=== PATIENT | male | born 1955 ===

== ENCOUNTER 2017-11-19 08:10 | Emergency (ER) | payer MEDICAID ==
[~2017-11-19] VITALS: Ht 167.6 cm; Wt 68.0 kg
[~2017-11-19 08:10] MED LIST: Augmentin 875-1 EACH PO; Cleocin HCl150 MG PO; Diclofenac Sodi50 MG PO; Naprosyn500 MG PO; OXYACE5T PO; Omeprazole20 M1; PANT40 PO; Pepcid20 MG PO; Pepcid40 MG PO; Percocet 5-3251 EACH PO; Prednisone20 MG PO; Prilosec20 MG PO; TRAM50 PO; Tamiflu75 MG PO; Ultram50 MG PO; Veetids 500500 MG PO; Vistaril50 MG PO; ZOLP5 PO
[2017-11-19 09:45] LABS: BASOPHILS ABSOLUTE AUTO 0.08 K/mm3 (0.00-0.23); BASOPHILS PERCENT AUTO 1 % (0-2); EOSINOPHILS ABSOLUTE AUTO 0.33 K/mm3 (0.00-0.68); EOSINOPHILS PERCENT AUTO 4 % (0-6); Hematocrit 43.9 % (37.0-53.0); Hemoglobin 14.2 g/dL (13.5-17.5); IMMATURE GRAN ABSOLUTE AUTO 0.02 K/mm3 (0.00-0.10); IMMATURE GRAN PERCENT AUTO 0 % (0-1); LYMPHOCYTES ABSOLUTE AUTO 1.78 K/mm3 (0.84-5.20); LYMPHOCYTES PERCENT AUTO 20 % (21-46); MONOCYTES ABSOLUTE AUTO 0.65 K/mm3 (0.16-1.47); MONOCYTES PERCENT AUTO 7 % (4-13); Mean Corpuscular HGB 28.7 pg (26.0-34.0); Mean Corpuscular HGB Conc 32.3 g/dL (31.5-36.5); Mean Corpuscular Volume 89 fL (80-100); Mean Platelet Volume 10.7 fL (9.1-12.4); NEUTROPHILS ABSOLUTE AUTO 5.93 K/mm3 (1.96-9.15); NEUTROPHILS PERCENT AUTO 67 % (41-73); Platelet Count 262 K/mm3 (150-400); RDW Coefficient Variation 13.8 % (11.7-14.2); RDW Standard Deviation 44.7 fL (35.1-46.3); Red Blood Cell Count 4.95 M/mm3 (4.30-5.90); White Blood Cell Count 8.79 K/mm3 (4.00-11.30)
[2017-11-19 10:06] LABS: Alanine Aminotransfer (ALT/SGP 39 U/L (12-78); Albumin, Blood 3.1 g/dL (3.4-5.0); Albumin/Globulin Ratio 0.8 (0.8-1.8); Alk Phos 76 U/L (50-136); Anion Gap 4 mmol/L (6-16); Aspartate Aminotrans (AST/SGOT 24 U/L (12-37); Bilirubin, Total 0.5 mg/dL (0.1-1.0); Blood Urea Nitrogen 8 mg/dL (8-24); Bun/Creatinine Ratio 12.1 (12.0-20.0); CO2, Blood 26 mmol/L (21-32); Calcium, Blood 8.8 mg/dL (8.5-10.1); Chloride, Blood 113 mmol/L (98-108); Creatinine, Blood 0.66 mg/dL (0.60-1.20); Globulin, Blood 3.7 g/dL (2.2-4.0); Glomerular Filtration Rate >60 (60-); Glucose, Blood 98 mg/dL (70-99); Sodium, Blood 143 mmol/L (136-145); Total Protein, Blood 6.8 g/dL (6.4-8.2)
[2017-11-19 11:10] LABS: Source, Urine Clean Catch
[2017-11-19] MEDS ORDERED: Norco 5-325 Ta1 EACH PO (11:11)
[2017-11-19 11:13] LABS: Bilirubin, Urine Neg (Neg); Blood, Urine Neg (Neg); Glucose Qualitative, Urine Neg (Neg); Ketones, Urine Neg (Neg); Leukocyte Esterase, Urine Neg (Neg); Nitrite, Urine Neg (Neg); Protein, Urine Neg (Neg); Urobilinogen, Urine NORM (Normal)
[2017-11-19 11:42] LABS: Appearance, Urine Clear (Clear); Color, Urine Yellow (P-Yellow)
== END 2017-11-19 11:33 | disposition home or self-care (01) ==
LOC: ER 08:10
PROVIDERS: Emergency Medicine
DX: R10.9 Unspecified abdominal pain (principal); F17.210 Nicotine dependence, cigarettes, uncomplicated
CPT/HCPCS: 36415; 74176; 80053; 81003; 83690; 85025; 93005; 93010; 96361; 96374; 96375; 99284; J2405; J3010; J7030

== ENCOUNTER 2018-03-03 09:30 | Emergency (ER) | payer OTHER ==
[~2018-03-03] VITALS: Ht 170.2 cm; Wt 72.6 kg
[~2018-03-03 09:30] MED LIST changes: +Norco 5-325 Ta1 EACH PO
[2018-03-03 10:21] LABS: Source, Urine Clean Catch
[2018-03-03 10:27] LABS: Bilirubin, Urine Neg (Neg); Blood, Urine 1+ (Neg); Glucose Qualitative, Urine Neg (Neg); Ketones, Urine 1+ (Neg); Leukocyte Esterase, Urine 1+ (Neg); Nitrite, Urine Neg (Neg); Protein, Urine 1+ (Neg); Urobilinogen, Urine 1+ (Normal)
[2018-03-03 10:43] LABS: Appearance, Urine Clear (Clear); Color, Urine Yellow (P-Yellow)
[2018-03-03 10:44] LABS: Mucus Light (0-Heavy); Squamous Epithelial Cells Rare /hpf (Few)
[2018-03-03 10:46] LABS: Bacteria Rare /hpf
[2018-03-03 10:48] LABS: Calcium Oxalate Crystals Few /hpf
[2018-03-03] MEDS ORDERED: CEFP200 PO (11:30)
[2018-03-03] MEDS ORDERED: Flomax0.4 MG PO (11:36)
== END 2018-03-03 11:57 | disposition home or self-care (01) ==
LOC: ER 09:30
PROVIDERS: Emergency Medicine
DX: N39.0 Urinary tract infection, site not specified (principal); F17.210 Nicotine dependence, cigarettes, uncomplicated
CPT/HCPCS: 76770; 81001; 87086

== ENCOUNTER 2021-04-15 13:37 | Emergency (ER) | payer OTHER ==
[~2021-04-15] VITALS: Ht 170.2 cm; Wt 68.0 kg
[~2021-04-15 13:37] MED LIST changes: +CEFP200 PO; +Flomax0.4 MG PO; +IBUP800 PO; +Voltaren100 GM TOP
[2021-04-15] MEDS ORDERED: OMEP20ER PO (13:54)
[2021-04-15] MEDS ORDERED: ONDA4ODT MM (15:34)
[2021-04-15] MEDS ORDERED: IBUP600 PO (15:34)
== END 2021-04-15 15:46 | disposition home or self-care (01) ==
LOC: ER 13:37
DX: S01.03XA Puncture wound without foreign body of scalp, initial encounter (principal); F17.210 Nicotine dependence, cigarettes, uncomplicated; W11.XXXA Fall on and from ladder, initial encounter
CPT/HCPCS: 70450; 72125; 93005; 93010; 99284-25

== ENCOUNTER → 2022-12-22 | Outpatient (CLI) | payer MEDICARE, OTHER ==
[~2022-12-22] MED LIST changes: +IBUP600 PO; +OMEP20ER PO; +ONDA4ODT MM
[2022-12-23 11:08] LABS: Stool Occult Bld Immuno 1 Negative (NEGATIVE)
== END | disposition home or self-care (01) ==
LOC: LAB 11:00 → LAB SHORT 11:00
PROVIDERS: Family Medicine
DX: Z12.11 Encounter for screening for malignant neoplasm of colon (principal)
CPT/HCPCS: 82274

== ENCOUNTER 2025-02-13 16:28 | Emergency (ER) | payer MEDICARE, OTHER ==
[~2025-02-13] VITALS: Ht 167.6 cm; Wt 68.0 kg
[~2025-02-13 16:28] MED LIST changes: +AMOCLA875 PO; +SULTRIDS PO
[2025-02-13 16:38] VITALS: BP 151/102
[2025-02-13 17:29] LABS: BASOPHILS ABSOLUTE AUTO 0.12 K/mm3 (0.00-0.23); BASOPHILS PERCENT AUTO 1 % (0-2); EOSINOPHILS ABSOLUTE AUTO 0.25 K/mm3 (0.00-0.68); EOSINOPHILS PERCENT AUTO 3 % (0-6); Hematocrit 44.2 % (37.0-53.0); Hemoglobin 14.4 g/dL (13.5-17.5); IMMATURE GRAN ABSOLUTE AUTO 0.02 K/mm3 (0.00-0.10); IMMATURE GRAN PERCENT AUTO 0 % (0-1); LYMPHOCYTES ABSOLUTE AUTO 2.00 K/mm3 (0.84-5.20); LYMPHOCYTES PERCENT AUTO 20 % (21-46); MONOCYTES ABSOLUTE AUTO 0.72 K/mm3 (0.16-1.47); MONOCYTES PERCENT AUTO 7 % (4-13); Mean Corpuscular HGB Conc 32.6 g/dL (31.5-36.5); Mean Corpuscular Volume 86 fL (80-100); NEUTROPHILS ABSOLUTE AUTO 6.71 K/mm3 (1.96-9.15); NEUTROPHILS PERCENT AUTO 68 % (41-73); NRBC ABSOLUTE 0.00 K/mm3 (0.00-0.02); NRBC Auto 0.0 /100 WBC (0.0-0.2); Platelet Count 317 K/mm3 (150-400); RDW Coefficient Variation 14.5 % (11.7-14.2); RDW Standard Deviation 45.1 fL (35.1-46.3)
[2025-02-13 17:51] LABS: Alanine Aminotransfer (ALT/SGP 31.0 U/L (12-78); Albumin, Blood 3.5 g/dL (3.4-5.0); Albumin/Globulin Ratio 0.9 (0.8-1.8); Anion Gap 6.0 mmol/L (3-11); Aspartate Aminotrans (AST/SGOT 27.0 U/L (12-37); Bilirubin, Total 0.9 mg/dL (0.1-1.0); Blood Urea Nitrogen 15.0 mg/dL (8-24); CO2, Blood 28.0 mmol/L (21-32); Calcium, Blood 9.8 mg/dL (8.5-10.1); Chloride, Blood 107.0 mmol/L (98-108); Creatinine, Blood 1.02 mg/dL (0.60-1.20); Globulin, Blood 4.0 g/dL (2.2-4.0); Glucose, Blood 93.0 mg/dL (70-99); Potassium, Blood 4.2 mmol/L (3.5-5.5); Sodium, Blood 137.0 mmol/L (136-145); Total Protein, Blood 7.5 g/dL (6.4-8.2)
[2025-02-13] MEDS ORDERED: Ipratropium/Albuterol SulF 2.5-0.5MG/3 ML Amp INH ONE (20:20)
[2025-02-13 20:57] LABS: Influenza A, PCR NEGATIVE (NEGATIVE); Influenza B, PCR NEGATIVE (NEGATIVE); Resp Syncytial Virus, PCR NEGATIVE (NEGATIVE); SARS-Cov-2 (COVID-19) PCR, MMC NEGATIVE (NEGATIVE)
[2025-02-13] MEDS ORDERED: PRED20 PO (22:01)
[2025-02-13] MEDS ORDERED: ALBU90OI INH (22:01)
== END 2025-02-13 22:42 | disposition home or self-care (01) ==
LOC: ER 16:28
PROVIDERS: Student in an Organized Health Care Education/Training Program
DX: J44.1 Chronic obstructive pulmonary disease with (acute) exacerbation (principal); F17.210 Nicotine dependence, cigarettes, uncomplicated; Z79.2 Long term (current) use of antibiotics; Z79.899 Other long term (current) drug therapy
CPT/HCPCS: 36415; 71046; 80053; 82550; 83605; 83690; 83880; 84484; 85025; 85379; 87040; 87637; 93005; 93010; 96374; 99285-25; J2919

== ENCOUNTER 2025-04-08 15:05 | Emergency (ER) | payer MEDICARE, OTHER ==
[~2025-04-08] VITALS: Ht 170.2 cm; Wt 72.6 kg
[~2025-04-08 15:05] MED LIST changes: +ALBU90OI INH; +PRED20 PO
[2025-04-08] MEDS ORDERED: Ketorolac Tromethamine 30mg Vial IM ONE (17:55)
[2025-04-08] MEDS ORDERED: Robaxin750 MG PO (18:09)
[2025-04-08] MEDS ORDERED: PAIN RELIEF PA1 EACH TOP (18:09)
[2025-04-08] MEDS ORDERED: IBUP800 PO (18:09)
[2025-04-08 18:19] VITALS: BP 150/90
== END 2025-04-08 18:27 | disposition home or self-care (01) ==
LOC: ER 15:05
DX: S16.1XXA Strain of muscle, fascia and tendon at neck level, initial encounter (principal); S76.011A Strain of muscle, fascia and tendon of right hip, initial encounter; F17.210 Nicotine dependence, cigarettes, uncomplicated; Z86.73 Personal history of transient ischemic attack (TIA), and cerebral infarction without residual deficits; Z79.899 Other long term (current) drug therapy; Y04.8XXA Assault by other bodily force, initial encounter
CPT/HCPCS: 72125; 73502; 96374; 99284-25; A9270; J1885